=== PATIENT | female | born 1995 | race Caucasian/White ===

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

== ENCOUNTER 2017-04-03 17:46 | Emergency (ER) | payer OTHER ==
[~2017-04-03] VITALS: Ht 152.4 cm; Wt 75.0 kg
[2017-04-03 21:15] LABS: CLARITY URINE CLEAR (CLEAR); COLOR URINE YELLOW (YELLOW); KETONES URINE NEGATIVE (NEGATIVE); LEUKOCYTE ESTERASE URINE NEGATIVE (NEGATIVE); NITRITE URINE NEGATIVE (NEGATIVE); OCCULT BLOOD URINE 3+ (NEGATIVE); PROTEIN URINE NEGATIVE (NEGATIVE); SPECIFIC GRAVITY URINE 1.023 (1.005-1.030); UROBILINOGEN URINE 0.2 E.U./dL (0.2-1.0)
[2017-04-03] MEDS ORDERED: SODIUM CHLORIDE 0.9% 1,000 ML IV ONE (22:17)
[2017-04-03] MEDS ORDERED: IPRATROPIUM/ALBUTEROL 0.5-3(2.5)MG/3ML NEB HHN ONE (22:30)
[2017-04-03 23:07] LABS: BASOPHILS % 0.2 % (0.0-2.0); EOSINOPHILS % 0.4 % (0.0-5.0); HEMOGLOBIN. 11.7 g/dL (12.0-16.0); LYMPHOCYTES % 27.3 % (20.0-50.0); MEAN PLATELET VOLUME 8.4 fl (7.4-10.4); MONOCYTES % 8.5 % (2.0-8.0); NEUTROPHILS % 63.6 % (40.0-76.0); PLATELET 203 x1000/uL (130-400); RED BLOOD CELL COUNT 4.86 mill/uL (4.2-5.4); RED CELL DISTRIBUTION WIDTH 15.5 % (11.6-14.6)
[2017-04-03 23:11] LABS: CHLORIDE 107 mEq/L (98-107)
[2017-04-03 23:15] LABS: CARBON DIOXIDE 26 mEq/L (21-32)
[2017-04-03 23:22] LABS: INR 1.1; PROTHROMBIN TIME 11.1 sec (9.4-11.6)
[2017-04-04 03:02] VITALS: BP 122/72
[2017-04-04] MEDS ORDERED: SULFAMETHOXAZOLE/TRIMETHOPRIM 800/160MG TABLET PO NR (03:30)
== END 2017-04-04 03:52 | disposition home or self-care (01) ==
LOC: ER 18:18
DX: J45.901 Unspecified asthma with (acute) exacerbation (principal); E86.0 Dehydration; R19.7 Diarrhea, unspecified; R10.30 Lower abdominal pain, unspecified; R11.10 Vomiting, unspecified; M79.1 Myalgia; R50.9 Fever, unspecified
CPT/HCPCS: 36415; 80053; 81001; 81025; 85025; 85610; 87804; 94640; 96360; 99284; J7620; J7030